=== PATIENT | female | born 1960 | race Caucasian/White ===

== ENCOUNTER → 2024-01-18 08:42 | Outpatient (REF) | payer BC, SELFPAY | LOC: RAD 08:42 | PROVIDERS: ATTENDING PHYSICIAN Specialist; FAMILY PHYSICIAN Family Medicine | DX: C67.9 Malignant neoplasm of bladder, unspecified (principal) | CPT/HCPCS: 76770 ==

== ENCOUNTER 2025-03-06 06:22 | Day surgery (SDC) | payer BC, SELFPAY ==
[2025-02-28 10:58] LABS: Hemoglobin 13.5 g/dL (12.0-16.0); Mean Corp Hgb Conc. 33.8 g/dL (33.0-37.0); Mean Corpuscular Hgb 30.9 pg (27.0-31.0); Mean Corpuscular Volume 91.5 fL (81.0-99.0); Mean Platelet Volume 8.6 fL (7.4-10.4); Platelet Count 244 10^3/uL (130-400); Red Blood Cell Count 4.37 10^6/uL (4.20-5.40); Red Cell Dist. Width 12.9 % (11.5-14.5); White Blood Cell Count 3.7 10^3/uL (4.8-10.8)
[2025-02-28 11:22] LABS: Blood Urea Nitrogen 19 mg/dl (7-17); Calcium 9.3 mg/dl (8.4-10.2); Carbon Dioxide 32 mmol/L (22-30); Chloride 106 mmol/L (98-107); Glucose 95 mg/dl (70-99); Potassium 4.8 mmol/L (3.5-5.1); Sodium 142 mmol/L (135-145); eGFR > 60.00
[2025-02-28 14:14] VITALS: BMI 27.8
[2025-03-06] VITALS (16 sets, daily range): BP systolic 92–139; BP diastolic 53–89; BMI 27.8
[2025-03-06] MEDS: CYSVIEW KIT 100 MG INTRAVES (08:49)
[2025-03-06] MEDS: NORMOSOL-R/PLASMALYTE-A 1000 IV (08:54)
[2025-03-06] MEDS: SYRINGE NON-PUMP 50 ML IRRIG ×2 (11:37→11:38)
[2025-03-06] MEDS: SYRINGE NON-PUMP 50 MG IRRIG ×2 (11:37→11:38)
[2025-03-06] MEDS: DETROL LA 4 MG PO (11:52)
[2025-03-06] MEDS: VALIUM INJECTION 2.5 MG IV (11:54)
== END 2025-03-06 14:20 | disposition home or self-care (01) ==
LOC: SDS 06:22
PROVIDERS: ATTENDING PHYSICIAN Specialist; FAMILY PHYSICIAN Family Medicine
DX: C67.9 Malignant neoplasm of bladder, unspecified (principal)
CPT/HCPCS: 52235; C9738; 88307; 36415; 74420; 76000; 80048; 85027; 93005; A9589; C1758; J9201